=== PATIENT | male | born 1995 | race Caucasian/White ===

== ENCOUNTER 2024-04-16 10:14 | Emergency (ER) | payer BC ==
[2024-04-16] MEDS ORDERED: Morphine 4 MG/ML VIAL ONE ×2 (10:43→11:48)
[2024-04-16] MEDS ORDERED: Ketorolac Tromethamine 30 MG (1 mL) VIAL ONE (10:43)
[2024-04-16] MEDS ORDERED: Acetaminophen 500 MG TAB ONE (10:44)
[2024-04-16] MEDS ORDERED: Ondansetron PF 4 MG/2 ML Vial ONE (10:55)
== END 2024-04-16 11:57 | disposition home or self-care (01) ==
LOC: CSHERS 10:14
DX: M54.50 Low back pain, unspecified (principal); X50.0XXA Overexertion from strenuous movement or load, initial encounter; Y93.43 Activity, gymnastics; Y92.39 Other specified sports and athletic area as the place of occurrence of the external cause
CPT/HCPCS: 72100; 96374; 96375; 96376; J1885; J2270; J2405